=== PATIENT | male | born 1965 | race African-American/Black ===

== ENCOUNTER 2016-11-17 13:17 | Emergency (ER) | payer OTHER ==
[~2016-11-17] VITALS: Ht 175.3 cm; Wt 50.4 kg
[2016-11-17] MEDS ORDERED: NEOSPORIN ANT70.8 GM TP (13:39)
[2016-11-17 14:18] VITALS: BP 155/98
== END 2016-11-17 14:19 | disposition home or self-care (01) ==
LOC: EME → EDBD 13:17 → EME 13:17
DX: S00.83XA Contusion of other part of head, initial encounter (principal); S00.81XA Abrasion of other part of head, initial encounter; W05.0XXA Fall from non-moving wheelchair, initial encounter; Z21 Asymptomatic human immunodeficiency virus [HIV] infection status; G82.20 Paraplegia, unspecified; Z99.3 Dependence on wheelchair; F17.200 Nicotine dependence, unspecified, uncomplicated
CPT/HCPCS: 99281; 99283